=== PATIENT | male | born 1930 ===

== ENCOUNTER 2018-04-26 15:22 | Observation (INO) | payer OTHER ==
[2018-04-26 17:10] LABS: BASO # 0.1 K/uL (0.0-0.2); BASO % 1.6 % (0.0-2.0); EOS # 0.1 K/uL (0.0-0.7); EOS % 3.2 % (0.0-4.0); HEMOGLOBIN 12.2 g/dL (12.0-18.0); LYMPH # 0.7 K/uL (1.0-4.3); LYMPH % 17.6 % (20.0-40.0); MEAN CELL VOLUME 93.4 fL (80.0-94.0); MEAN CORPUSCULAR HEMOGLOBIN 32.1 pg (27.0-31.0); MEAN CORPUSCULAR HGB CONC 34.4 g/dL (33.0-37.0); MEAN PLATELET VOLUME 7.3 fL (7.2-11.7); MONO # 0.5 K/uL (0.0-0.8); MONO % 12.6 % (0.0-10.0); NEUT # 2.6 K/uL (1.8-7.0); RBC 3.81 Mil/uL (4.40-5.90); RED CELL DISTRIBUTION WIDTH 13.7 % (11.5-14.5)
--- NOTE | 2018-04-26 17:30 | C.PDOC ---
History Of Present Illness 87 y/o male presents to the ED with complaints of chest pain and upper back pain. Patient was seen by Dr. Kumar in the office on , instructed to come to the ED immediately to rule out dissection. Patient arrives to the ED today, reports having intermittent pain. No associated SOB, fever, chills, night sweats, abdominal pain, nausea, or vomiting. Time Seen by Provider: 04/26/18 16:41 Chief Complaint (Nursing): Back Pain History Per: Patient History/Exam Limitations: no limitations Onset/Duration Of Symptoms: Intermittent Episodes Current Symptoms Are (Timing): Still Present Past Medical History Reviewed: Historical Data, Nursing Documentation, Vital Signs Vital Signs: Last Vital Signs Temp 98.2 F 04/26/18 15:31 Pulse 81 04/26/18 15:31 Resp 16 04/26/18 15:31 BP 172/83 H 04/26/18 15:31 Pulse Ox 98 04/26/18 15:31 - Medical History PMH: HTN - [facility] Procedures INJECT/INFUSE NEC (12/19/14) Family History: States: No Known Family Hx - Social History Hx Alcohol Use: Yes Hx Substance Use: No Review Of Systems Except As Marked, All Systems Reviewed And Found Negative. Constitutional: Negative for: Fever, Chills, Sweats Eyes: Negative for: Vision Change Cardiovascular: Positive for: Chest Pain Respiratory: Negative for: Cough, Shortness of Breath Gastrointestinal: Negative for: Nausea, Vomiting, Diarrhea Musculoskeletal: Positive for: Back Pain Physical Exam - Physical Exam Appears: Non-toxic, No Acute Distress Skin: Normal Color, Warm, Dry Head: Atraumatic, Normacephalic Eye(s): bilateral: Normal Inspection, PERRL, EOMI Oral Mucosa: Moist Neck: Normal ROM, Supple Chest: Symmetrical, No Tenderness Cardiovascular: Rhythm Regular, No Murmur Respiratory: Normal Breath Sounds, No Rales, No Rhonchi, No Wheezing Gastrointestinal/Abdominal: Soft, No Tenderness, No Distention Back: No CVA Tenderness, No Vertebral Tenderness, No Decreased ROM Extremity: Bilateral: Atraumatic, Normal Color And Temperature, Normal ROM Pulses: Left Dorsalis Pedis: Normal, Right Dorsalis Pedis: Normal Neurological/Psych: Oriented x3, Normal Speech ED Course And Treatment - Laboratory Results Result Diagrams: 04/26/18 17:05 04/26/18 17:05 ECG: Interpreted By Me, Viewed By Me ECG Rhythm: Sinus Rhythm Interpretation Of ECG: R BBB, nonspecific ST changes Rate From EC (bpm) O2 Sat by Pulse Oximetry: 98 (RA) Pulse Ox Interpretation: Normal Medical Decision Making Medical Decision Making: Impression: Chest Pain, Back Pain Plan: --EKG --Blood work --Chest x-ray Spoke to Dr. Kumar, who requests CTA/dissection study of the aorta. Disposition Discussed With Dr.: Ashley Mahan Counseled Patient/Family Regarding: Studies Performed, Diagnosis - Disposition Disposition Time: 19:00 Condition: STABLE Forms: [employer] ([place]) - Clinical Impression Clinical Impression: Thoracic back pain, Chest pain - Scribe Statement The provider has reviewed the documentation as recorded by the Anabellaibderek Soto Provider Attestation: All medical record entries made by the Scribe were at my direction and personall y dictated by me. I have reviewed the chart and agree that the record accurately reflects my personal performance of the history, physical exam, medical decision making, and the department course for this patient. I have also personally directed, reviewed, and agree with the discharge instructions and disposition. Physician Patient Turnover Patient Signed Over To: Ashley Mahan Handoff Comments: pending imaging and admission
[2018-04-26 17:31] LABS: ALT/SGPT 17 U/L (21-72); AST/SGOT 19 U/L (17-59); BLOOD UREA NITROGEN 17 mg/dL (9-20); CALCIUM 9.3 mg/dl (8.6-10.4); GFR NON-AFRICAN AMERICAN > 60
[2018-04-26 17:32] LABS: ALBUMIN 4.2 g/dL (3.5-5.0)
[2018-04-26 17:39] LABS: B-TYPE NATRIURETIC PEPTIDE 208 pg/mL (0-900)
[2018-04-26 18:16] LABS: ALB/GLOB RATIO 1.2 (1.0-2.1)
[2018-04-26] MEDS ORDERED: Iohexol 300 100 ML IJ ONE (18:38)
--- NOTE | 2018-04-26 19:16 | CT ---
Date of service: 04/26/2018 PROCEDURE: CT angiography of the chest, Abdomen and Pelvis with and without intravenous contrast HISTORY: back and chest pain COMPARISON: Chest x-ray same day TECHNIQUE: IV dose administered: [address] angiography examination of the chest, abdomen, and pelvis was performed without the use of intravenous contrast. Then postcontrast angiographic phase imaging of the chest, abdomen, and pelvis was then performed. Reformatted images were performed the sagittal and coronal planes. Radiation dose: Total exam DLP = 879.73 mGy-cm. This CT exam was performed using one or more of the following dose reduction techniques: Automated exposure control, adjustment of the mA and/or kV according to patient size, and/or use of iterative reconstruction technique. FINDINGS: CT CHEST WITH CONTRAST: LUNGS: Clear. No nodule, mass or consolidation. MEDIASTINUM: Thoracic inlet shows mild heterogeneity of the thyroid gland. No further imaging workup would be suggested. No appreciable mediastinal or hilar lymphadenopathy is noted. LYMPH NODES: No enlarged lymph nodes. PLEURA: No pleural effusion. No pneumothorax. BONES: Degenerative changes are seen in the spine, without appreciable acute compression fracture. Visualized sternum is intact. No obvious rib fracture is seen. No pelvis or hip fracture is noted. 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 No intramural hematoma is noted on the postcontrast images. There is calcific atherosclerotic and atheromatous changes of the thoracic aorta, without intimal flap to suggest aortic dissection. Additional atherosclerotic changes of the abdominal aorta are noted without aneurysmal dilatation. No intimal flap is seen in the abdominal aorta. CT ABDOMEN AND PELVIS: LIVER: No hyperenhancing mass of the liver is noted. Spleen is normal in size and outline. Visualized pancreas shows minor pancreatic ductal dilatation. Common bile duct is normal in size for a patient of this age. Gallbladder is decompressed without wall thickening. No intrahepatic ductal dilatation is seen. Adrenal glands are unremarkable for mass although some calcification is seen in the right adrenal gland, nonspecific. No hydronephrosis is seen. Kidneys also show evidence of minimal perinephric changes. Right renal cyst is identified. GALLBLADDER AND BILE DUCTS: See above. PANCREAS: See above. SPLEEN: See above. ADRENALS: See above. KIDNEYS AND URETERS: See above. VASCULATURE: Evaluation of the aortic branch vessels reveal patent great vessels with mild atherosclerotic changes. Evaluation of the abdominal vessels reveals atherosclerotic change of the celiac vessels without aneurysm or stenosis. There is however evidence of some atheromatous narrowing of the proximal SMA although it appears to be patent distally. Atherosclerotic changes of the renal arteries are noted with moderate stenosis of the proximal right renal artery there also appears to be a 2nd additional right renal artery which is patent. No infarct in the kidneys is seen. Milder at aortoiliac atherosclerotic changes are noted. No aortic aneurysm is seen. BOWEL: Unremarkable. No obstruction. No gross mural thickening. APPENDIX: Appendix not well seen, although no right lower quadrant inflammatory process is noted. PERITONEUM: No ascites or free intraperitoneal air. LYMPH NODES: Unremarkable. No enlarged lymph nodes. BLADDER: Unremarkable. REPRODUCTIVE: Prostate gland is mildly enlarged. BONES: No acute fracture. OTHER FINDINGS: None. IMPRESSION: No CT scan evidence of thoracic or abdominal aortic dissection. 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 Please see above for other details.
--- NOTE | 2018-04-26 21:01 | RAD ---
Date of service: 04/26/2018 PROCEDURE: CHEST RADIOGRAPH, 1 VIEW HISTORY: SOB COMPARISON: None available. FINDINGS: LUNGS: Mild chronic interstitial changes are seen. Trachea is midline. PLEURA: No pneumothorax or pleural fluid seen. CARDIOVASCULAR: Mild atherosclerotic calcification of the aorta with uncoiling. Normal. OSSEOUS STRUCTURES: No significant abnormalities. VISUALIZED UPPER ABDOMEN: Normal. OTHER FINDINGS: None. IMPRESSION: No active disease.
[2018-04-26] MEDS ORDERED: Sodium Chloride 0.45% 1,000 ML IV SCH (21:45)
[2018-04-26] MEDS ORDERED: Sodium Chloride 0.9% 0 ML ONE (22:07)
[2018-04-26] MEDS ORDERED: Sodium Chloride 0.45% 500ml 1,000 ML IV ONE (22:08)
[2018-04-27 01:42] LABS: CK-MB 1.13 ng/mL (0.0-3.38)
[2018-04-27 02:36] VITALS: RESP 20; O2SAT 96
[2018-04-27 07:30] VITALS: BP 168/89; TEMP 97.6
[2018-04-27] MEDS ORDERED: Metoprolol Succinate 25 mg XL Tab PO SCH (10:00)
[2018-04-27] MEDS ORDERED: Pantoprazole 40 mg EC Tab PO SCH (10:00)
[2018-04-27] MEDS ORDERED: Enoxaparin 40 mg Syringe SC SCH (10:00)
[2018-04-27 12:23] VITALS: PULSE 77
--- NOTE | 2018-04-27 19:59 | CARD ---
APPROVED REPORT Date of service: 04/26/2018 EKG Measurement Heart [id number] <Conclusion> Normal sinus rhythm Right bundle branch block Abnormal ECG
[2018-04-28] MEDS ORDERED: Influenza Vaccine 60 MCG/0.5 ML SYR (3 yr & up) IM ONE (10:00)
[2018-04-28] MEDS ORDERED: Pneumococcal 23-Valent Vaccine IM ONE (10:00)
--- NOTE | 2018-04-28 12:29 | CARD ---
APPROVED REPORT Date of service: 04/27/2018 EKG Measurement Heart [id number] <Conclusion> Normal sinus rhythm Right bundle branch block Abnormal ECG
== END 2018-04-27 14:34 | disposition left against medical advice (07) ==
LOC: C.ER 15:22 → C.9E 21:24 → C.6T 22:31
PROVIDERS: ADMIT Internal Medicine Cardiovascular Disease; ATTEND Internal Medicine Cardiovascular Disease
DX: M54.6 Pain in thoracic spine (principal); I11.0 Hypertensive heart disease with heart failure; R07.9 Chest pain, unspecified
CPT/HCPCS: 36415; 71045; 71275; 74175; 80053; 83880; 84443; 84484; 85025; 93005; 99285; G0378; J1650; J7030; Q9967